=== PATIENT | female | born 1985 | race American Indian/Alaskan Native ===

== ENCOUNTER 2017-01-25 16:10 | Emergency (ER) | payer OTHER ==
[2017-01-25 16:22] VITALS: BP 121/75; PULSE 84; RESP 18; TEMP 98.2; O2SAT 100; BMI 27.3
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
== END 2017-01-25 17:13 | disposition home or self-care (01) ==
LOC: C.ER 16:10
DX: Z04.1 Encounter for examination and observation following transport accident (principal)